=== PATIENT | male | born 1945 | race Caucasian/White ===

== ENCOUNTER 2018-02-16 14:00 | Emergency (ER) | payer OTHER ==
[~2018-02-16] VITALS: Ht 167.6 cm; Wt 74.8 kg
[~2018-02-16 14:00] MED LIST: ASPIRIN325 MG PO; HYDROCHLOROTHIA PO; LIPITOR80 MG PO; OMEPRAZOLE DR20 M1 PO; ONE DAILY MAXIM1 TAB PO; TRIAMCINOLONE AC0.13 TOP; [UNRECOGNIZED DRUG - OTHER] TP
[2018-02-16 14:10] VITALS: Ht 167.6 cm; Wt 74.8 kg
[2018-02-16 14:35] LABS: BASOPHIL % 1.1 % (0-2); PLATELET COUNT 211 x10^3mcL (130-400)
[2018-02-16 14:36] LABS: RED CELL DISTRIBUTION WIDTH 15.2 % (11.5-14.5)
[2018-02-16 14:45] LABS: ALBUMIN 4.1 g/dL (3.4-5.0); ALKALINE PHOSPHATASE 125 U/L (46-116); ALT/SGPT 38 U/L (16-63); AST/SGOT 29 U/L (15-37); BILIRUBIN TOTAL 0.7 mg/dL (0.20-1.00); CALCIUM 8.9 mg/dL (8.5-10.1); CHLORIDE SERUM 100 mmol/L (98-107); GLUCOSE SERUM 112 mg/dL (74-106); SODIUM SERUM 137 mmol/L (136-145); TOTAL PROTEIN, SERUM 7.5 g/dL (6.4-8.2)
[2018-02-16 14:51] LABS: POTASSIUM SERUM 2.6 mmol/L (3.5-5.1)
[2018-02-16 15:17] VITALS: BP 136/80
== END 2018-02-16 19:23 | disposition short-term general hospital (02) ==
LOC: ED 14:00
PROVIDERS: Emergency Medicine
DX: S51.812A Laceration without foreign body of left forearm, initial encounter (principal); I10 Essential (primary) hypertension; E78.00 Pure hypercholesterolemia, unspecified; W22.8XXA Striking against or struck by other objects, initial encounter; Y93.89 Activity, other specified; Y92.89 Other specified places as the place of occurrence of the external cause; Y99.8 Other external cause status
CPT/HCPCS: 36415; 90715; J0690; J2001; J7030; J7040

== ENCOUNTER 2018-02-26 06:18 | Emergency (ER) | payer OTHER ==
[~2018-02-26] VITALS: Ht 167.6 cm; Wt 73.0 kg
[2018-02-26 06:28] VITALS: BP 116/55; Ht 167.6 cm; Wt 73.0 kg
== END 2018-02-26 07:36 | disposition home or self-care (01) ==
LOC: ED 06:18
DX: S51.812D Laceration without foreign body of left forearm, subsequent encounter (principal); L08.9 Local infection of the skin and subcutaneous tissue, unspecified; I10 Essential (primary) hypertension; E78.00 Pure hypercholesterolemia, unspecified; Z86.73 Personal history of transient ischemic attack (TIA), and cerebral infarction without residual deficits; X58.XXXD Exposure to other specified factors, subsequent encounter